=== PATIENT | female | born 1965 | race Caucasian/White ===

== ENCOUNTER 2019-03-17 09:42 | Emergency (ER) | payer OTHER ==
[~2019-03-17] VITALS: Ht 160 cm; Wt 80.0 kg
[2019-03-17] MEDS ORDERED: OMEP10 PO (10:18)
[2019-03-17] MEDS ORDERED: MECL-111 PO (10:18)
[2019-03-17] MEDS ORDERED: QUET100T PO (10:18)
[2019-03-17] MEDS ORDERED: FLUO-191 PO (10:18)
[2019-03-17] MEDS ORDERED: CLON.5 PO (10:18)
[2019-03-17] MEDS ORDERED: DiphenhydrAMINE HCL 50 MG/ML VIAL IVP ONE (11:00)
[2019-03-17] MEDS ORDERED: METOCLOPRAMIDE HCL 5 MG/ML 2 ML VIAL IVP ONE (11:00)
[2019-03-17 11:15] LABS: BASOPHILS % (AUTO) 0.7 % (0.0-2.0); EOSINOPHILS % (AUTO) 0.9 % (1.0-6.0); HEMATOCRIT 41.6 % (36-46); HEMOGLOBIN 13.7 g/dL (12.0-16.0); LYMPHOCYTES # (AUTO) 1.5 K/uL (1.0-4.8); LYMPHOCYTES % (AUTO) 27.9 % (22.0-44.0); MEAN CORPUSCULAR HEMOGLOBIN 30.3 pg (26.0-34.0); MEAN CORPUSCULAR VOLUME 92 fL (80-100); MONOCYTES # (AUTO) 0.4 K/uL (0.1-1.0); MONOCYTES % (AUTO) 7.5 % (2.0-9.0); NEUTROPHILS # (AUTO) 3.4 K/uL (1.8-7.7); PLATELET COUNT (AUTO) 211 K/uL (150-450); RED BLOOD CELL COUNT(AUTO) 4.53 MIL/uL (4.00-5.20); RED CELL DISTRIBUTION WIDTH 14.1 % (11.5-14.5)
[2019-03-17] MEDS ORDERED: SODIUM CHLORIDE 0.9% 1,000 ML IV ONE (11:15)
[2019-03-17 11:26] LABS: ANION GAP 5 mmol/L (8-16); CALCIUM, TOTAL 9.1 mg/dL (8.8-10.5); CARBON DIOXIDE 30 mmol/L (22-29); CHLORIDE 104 mmol/L (98-107); CREATININE 0.67 mg/dL (0.60-1.30); GLOMERULAR FILTR. RATE CALC > 60 mL/min (>60); GLUCOSE,RANDOM 133 mg/dL (70-110); SODIUM SERUM 139 mmol/L (136-145); UREA NITROGEN, BLOOD 13 mg/dL (7-18)
[2019-03-17 11:31] LABS: ALANINE AMINOTRANSFERASE 41 U/L (12-78); ALBUMIN 3.8 g/dL (3.4-5.0); ALKALINE PHOSPHATASE 84 U/L (46-116); ASPARTATE AMINOTRANSFERASE 20 U/L (15-37); BILIRUBIN,TOTAL 0.7 mg/dL (0.1-1.0); TOTAL PROTEIN, SERUM 7.4 g/dL (6.4-8.2)
[2019-03-17 12:43] VITALS: BP 131/76
== END 2019-03-17 12:57 | disposition home or self-care (01) ==
LOC: EMS 09:43
DX: R42 Dizziness and giddiness (principal); F17.210 Nicotine dependence, cigarettes, uncomplicated; Z79.899 Other long term (current) drug therapy
CPT/HCPCS: 36415; 70450; 80053; 85025; 93005; 96361; 96374; 96375; 99284; 99406; J1200; J2765; J7030

== ENCOUNTER 2019-09-16 11:57 | Emergency (ER) | payer OTHER ==
[~2019-09-16] VITALS: Ht 160 cm; Wt 75.9 kg
[~2019-09-16 11:57] MED LIST: CLON.5 PO; FLUO-191 PO; MECL-160 PO; OMEP10 PO; QUET100T PO
[2019-09-16 12:20] LABS: GLUCOSE,POINT OF CARE 102 MG/DL (70-110)
[2019-09-16] MEDS ORDERED: AMIT25TA9 PO (14:38)
[2019-09-16] MEDS ORDERED: AMOX1TAB16 PO (14:38)
[2019-09-16] MEDS ORDERED: ACET325T51 PO (14:38)
[2019-09-16] MEDS ORDERED: OMEP20CA13 PO (14:38)
[2019-09-16] MEDS ORDERED: BENZ100C68 PO (14:38)
[2019-09-16] MEDS ORDERED: TIMO5DRO7 OU (14:38)
[2019-09-16] MEDS ORDERED: METF-960 PO (14:38)
[2019-09-16] MEDS ORDERED: ATOR20TA65 PO (14:38)
[2019-09-16] MEDS ORDERED: ONDANSETRON HCL 4 MG/2 ML VIAL IVP ONE (14:45)
[2019-09-16] MEDS ORDERED: SODIUM CHLORIDE 0.9% 1,000 ML IV ONE (14:45)
[2019-09-16 14:53] LABS: BASOPHILS % (AUTO) 0.6 % (0.0-2.0); EOSINOPHILS % (AUTO) 0.5 % (1.0-6.0); HEMATOCRIT 42.5 % (36-46); HEMOGLOBIN 14.4 g/dL (12.0-16.0); LYMPHOCYTES # (AUTO) 2.2 K/uL (1.0-4.8); MEAN CORPUSCULAR HEMOGLOBIN 30.5 pg (26.0-34.0); MEAN CORPUSCULAR VOLUME 90 fL (80-100); MONOCYTES # (AUTO) 0.3 K/uL (0.1-1.0); MONOCYTES % (AUTO) 5.6 % (2.0-9.0); NEUTROPHILS # (AUTO) 2.8 K/uL (1.8-7.7); NEUTROPHILS % (AUTO) 52.3 % (40.0-70.0); PLATELET COUNT (AUTO) 223 K/uL (150-450); RED BLOOD CELL COUNT(AUTO) 4.73 MIL/uL (4.00-5.20); RED CELL DISTRIBUTION WIDTH 13.8 % (11.5-14.5)
[2019-09-16 15:07] LABS: ANION GAP 7 mmol/L (8-16); CALCIUM, TOTAL 9.4 mg/dL (8.8-10.5); CARBON DIOXIDE 32 mmol/L (22-29); CHLORIDE 100 mmol/L (98-107); CREATININE 0.76 mg/dL (0.60-1.30); GLOMERULAR FILTR. RATE CALC > 60 mL/min (>60); GLUCOSE,RANDOM 104 mg/dL (70-110); POTASSIUM 3.8 mmol/L (3.5-5.1); SODIUM SERUM 139 mmol/L (136-145); UREA NITROGEN, BLOOD 12 mg/dL (7-18)
[2019-09-16 15:12] LABS: ALANINE AMINOTRANSFERASE 46 U/L (12-78); ALBUMIN 4.1 g/dL (3.4-5.0); ALKALINE PHOSPHATASE 117 U/L (46-116); ASPARTATE AMINOTRANSFERASE 22 U/L (15-37); BILIRUBIN,TOTAL 1.4 mg/dL (0.1-1.0); LIPASE 99 U/L (73-393); TOTAL PROTEIN, SERUM 7.9 g/dL (6.4-8.2)
[2019-09-16] MEDS ORDERED: PB/HYOSCY/ATR/SCOP/LIDO/MAALOX 55 ML BOTTLE PO ONE (16:00)
[2019-09-16 17:09] VITALS: BP 136/80
== END 2019-09-16 17:20 | disposition home or self-care (01) ==
LOC: EMS 11:58
DX: K29.70 Gastritis, unspecified, without bleeding (principal); R51 Headache; I10 Essential (primary) hypertension; E11.9 Type 2 diabetes mellitus without complications; E78.00 Pure hypercholesterolemia, unspecified; F32.9 Major depressive disorder, single episode, unspecified; F41.9 Anxiety disorder, unspecified; Z79.84 Long term (current) use of oral hypoglycemic drugs; Z79.899 Other long term (current) drug therapy
CPT/HCPCS: 36415; 70450; 71045; 80053; 82962; 83690; 84484; 85025; 93005; 96361; 96374; 96375; 99285; J2405; J7030